=== PATIENT | female | born 1960 | race African-American/Black ===

== ENCOUNTER 2019-01-31 19:25 | Emergency (ER) | payer BC ==
[~2019-01-31] VITALS: Ht 165.1 cm; Wt 90.7 kg
[2019-01-31 19:59] LABS: ABSOLUTE NEUTROPHILS 2.8 thou/uL (1.4-8.2); BASOPHILS 1.1 % (0.0-2.0); EOSINOPHILS 5.7 % (0.0-3.0); HEMATOCRIT 39.1 % (37.0-47.0); HEMOGLOBIN 13.4 gm/dL (12.0-15.0); LYMPHOCYTES 34.3 % (24.0-44.0); MCH 32.1 pg (26.0-34.0); MCHC 34.3 g/dL (28.0-37.0); MCV 93.6 fL (80.0-100.0); MONOCYTES 11.5 % (1.0-8.0); PLATELET COUNT 272 thou/uL (150-400); POLYS 47.4 % (36.0-66.0); RBC 4.18 mil/uL (4.20-5.00); RDW 13.6 % (10.5-14.5)
[2019-01-31 20:11] LABS: ANION GAP 8 mmol/L (7-16); BUN 16 mg/dL (7-18); CALCIUM 9.4 mg/dL (8.5-10.1); CHLORIDE 107 mmol/L (98-107); CO2 25 mmol/L (21-32); GLUCOSE 119 mg/dL (74-106); POTASSIUM 3.8 mmol/L (3.5-5.1); SODIUM 140 mmol/L (136-145); TROPONIN-I <0.06 ng/mL (<0.06)
--- NOTE | 2019-01-31 21:18 | EKG ---
[place] [address] [facility] [place] [address] ELECTROCARDIOGRAM REPORT Name: MAURICE BRYANT [id number] ������������������ Admission: 01/31/19 ������������������ Attend Phys: Discharge: ������������������ Date of : 60 Report #: [id number] ����������������������������������������������������������������� [id number] THIS REPORT FOR: //name// [facility] ED Test Date: 2019-01-31 Test Time: 19:35:05 Pat Name: MAURICE BRYANT Department: Room: Gender: F Telephone [employer]: JARRET : 1960 Requested By: Lacy Carpenter Order Number: [id number] MD: Santosh Calloway Measurements Intervals [place] Rate: 81 P: 40 PA: 195 QRS: -2 QRSD: 84 T: 15 QT: 376 QTc: 437 Interpretive Statements Sinus rhythm Compared to ECG 08/03/2009 08:47:24 No significant changes Electronically Signed On 01-31-2019 21:18:20 CDT by Santosh Calloway [email or web address] ��������������������������������������������� <ELECTRONICALLY SIGNED> ���������������������������������������� By: Santosh Calloway MD ��������������������������������������������� 01/31/19 [id number] 34 34 Santosh Calloway MD /HORTENSIA
[2019-01-31] MEDS ORDERED: NORVASC10 MG PO (21:48)
[2019-01-31] MEDS ORDERED: PEPCID20 MG PO (22:32)
[2019-01-31 22:43] VITALS: BP 142/91
== END 2019-01-31 22:46 | disposition home or self-care (01) ==
LOC: ER 19:25
PROVIDERS: Student in an Organized Health Care Education/Training Program
DX: K21.9 Gastro-esophageal reflux disease without esophagitis (principal); I10 Essential (primary) hypertension; F17.210 Nicotine dependence, cigarettes, uncomplicated; Z86.2 Personal history of diseases of the blood and blood-forming organs and certain disorders involving the immune mechanism; Z98.890 Other specified postprocedural states